=== PATIENT | male | born 1965 | race Caucasian/White ===

== ENCOUNTER 2017-08-13 06:56 | Emergency (ER) | payer OTHER ==
[2017-08-13] MEDS ORDERED: NS 0.9% 1000 ML* 1,000 ML IV ONE (08:07)
[2017-08-13] MEDS ORDERED: Metoclopramide IV* 5 MG/ML 2 ML VIAL IV SLOW PU ONE (08:07)
[2017-08-13] MEDS ORDERED: diPHENhydraMINE IV* 50 MG in NS 0.9% 50 ML* 50 ML IVPB ONE (08:07)
--- NOTE | 2017-08-13 08:41 | RAD ---
INDICATION: Headaches COMPARISON: None TECHNIQUE: Noncontrast axial source images were acquired from the skull base to the vertex. FINDINGS: Ventricles/sulci: The ventricles and cisterns are normal in size and configuration for age. Brain parenchyma: There is no focal parenchymal finding, evidence of intracranial mass, or intracranial mass effect. Intracranial hemorrhage:None. Extra-axial spaces: There are no abnormal extra axial fluid collections or evidence of extra-axial mass. Calvarium: There is no calvarial fracture or other calvarial abnormality. Scalp: There is no evidence of scalp or extracalvarial soft tissue abnormality. Paranasal sinuses/mastoid: The paranasal sinuses and mastoid air cells are clear. Other: None. IMPRESSION: NEGATIVE EXAMINATION
[2017-08-13 08:45] LABS: Hematocrit 46 % (42-52); Hemoglobin 15.7 g/dl (14.0-18.0); Mean Corpuscular HGB Conc 34 g/dl (31-36); Mean Corpuscular Hemoglobin 31 pg (27-31); Mean Corpuscular Volume 92 fL (80-94); Mean Platelet Volume 7.5 um3 (7.4-10.4); Platelet Count 236 10^3/ul (150-450); Red Blood Count 5.05 10^6/ul (4.0-5.4); Red Cell Distribution Width 13 % (10.5-15); White Blood Count 5.5 10^3/ul (3.5-10.8)
[2017-08-13] MEDS ORDERED: Diazepam SYRINGE* 5 MG/ML 2 ML SYRINGE (10 MG total) IV ONE (08:47)
[2017-08-13] MEDS ORDERED: Diazepam INJ (NF) 5 MG/ML 10 ML VIAL (50 MG TOTAL) IV ONE (09:00)
[2017-08-13 09:05] LABS: EGFR Non-African American 68.4 (>60)
[2017-08-13] MEDS ORDERED: Ketorolac INJ* 30 MG/ML 1 ML VIAL IV PUSH ONE (09:57)
[2017-08-13] MEDS ORDERED: Magnesium Sulfate 2 GM IV* 2 GM/50 ML BAG IVPB ONE (09:57)
[2017-08-13] MEDS ORDERED: Dexamethasone IV* 4 MG/ML 1 ML (4 MG) IV SLOW PU ONE (09:58)
[2017-08-13 12:02] VITALS: BP 119/82
--- NOTE | 2017-08-13 18:32 | ED ---
Manuel Falcon Angela, scribed for Aldo Asif MD on 08/13/17 at 0728 . Headache - HPI Summary HPI Summary: This pt is a 52 y/o male, accompanied by his , presenting to [facility] c/o headache since yesterday at 12:00. Pt reports he has a hx of migraines. The last time he was in a hospital for his headache was more than 5 years ago. He states his headache began yesterday at noon during a meeting. Pt notes it began as a regular headache and worsened quickly. His headache is located on the back of his head at the base of his skull and radiates to the top of his head. Pt additionally notes neck pain, shoulder pain, photophobia. His pain is exacerbated with head movement and pressing on head. He reports he has spent approx 16 hours traveling by buses last week. Denies fever, chills, visual changes. He took Imitrex and Flexeril yesterday with mild relief. Imitrex is prescribed by Dr. Pantoja. The last time he used Imitrex (prior to yesterday) was a couple of weeks ago. Pt notes today's headache is similar to a headache he had 5 years ago where he needed to go to the hospital. He is currently on Clomiphene. Pt is allergic to Compazine, he has a dystonic reaction with this medication. - History Of Current Complaint Chief Complaint: EDHeadache Stated Complaint: HEADACHE Time Seen by Provider: 08/13/17 07:21 Hx Obtained From: Patient Onset/Duration: Started days ago - 1, Still Present Currently Pain Is: Severe - 9/10 Timing: Days - 1 Location of Headache: Occipital Radiates to: the top of his head Aggravating Factor: Other - movement of head and palpation Allevating Factors: Other (Noted In Comments) - Flexeril Associated Signs And Symptoms: Neck Pain, Other (Noted In Comments) - POS: shoulder pain, photophobia. NEG: fever, chills, visual changes. - Allergies/Home Medications Allergies/Adverse Reactions: Allergies Allergy/AdvReac Type Severity Reaction Status Date / Time diphenhydramine Allergy See Comment Verified 08/13/17 09:45 [From Benadryl] niacin Allergy Facial Verified 08/13/17 07:07 [From Niaspan Redness/Flushing Extended-Release] prochlorperazine Allergy See Comment Verified 08/13/17 07:08 [From Compazine] Home Medications: Home Medications Calcium Carbonate [Calcium] 1,000 mg PO DAILY 08/13/17 [History Confirmed ] Cetirizine* [ZyrTEC 10 MG TAB*] 10 mg PO DAILY 08/13/17 [History Confirmed 08/13] Cholecalciferol TAB* [Vitamin D TAB*] 400 unit PO DAILY 08/13/17 [History Confirmed 08/13/17] Cyclobenzaprine TAB* [Flexeril 10 MG TAB*] 5 mg PO DAILY 08/13/17 [History Confirmed 08/13/17] SUMAtriptan TAB* [Imitrex TAB*] 25 mg PO DAILY PRN 08/13/17 [History Confirmed 08/13/17] clomiPHENE citrate [Serophene] 25 mg PO DAILY 08/13/17 [History Confirmed ] PMH/Surg Hx/FS Hx/Imm Hx Endocrine/Hematology History: Denies: Hx Diabetes Cardiovascular History: Denies: Hx Hypertension, Hx Pacemaker/ICD History: Denies: Hx Renal Disease Sensory History: Denies: Hx Hearing Aid Neurological History: Reports: Hx Migraine Psychiatric History: Denies: Hx Panic Disorder - Surgical History Surgery Procedure, Year, and Place: tonsillectomy Infectious Disease History: No Infectious Disease History: Denies: History Other Infectious Disease, Traveled Outside the [place] in Last 30 Days - Family History Family History: No FHx of colon CA - Social History Alcohol Use: Weekly Substance Use Type: Reports: None Smoking Status (MU): Never Smoked Tobacco Review of Systems Negative: Fever, Chills Positive: Photophobia. Negative: Erythema, Other - visual changes Negative: Sore Throat Negative: Chest Pain Negative: Shortness Of Breath, Cough Negative: Abdominal Pain, Vomiting, Nausea Negative: dysuria, hematuria Musculoskeletal: Other - neck pain, shoulder pain Negative: Myalgia, Edema Negative: Rash Neurological: Other - NEG: dizziness Positive: Headache All Other Systems Reviewed And Are Negative: Yes Physical Exam - Summary Physical Exam Summary: Constitutional: Well-developed, Well-nourished, Alert. (-) Distressed Skin: Warm, Dry HENT: Normocephalic; Atraumatic Eyes: Conjunctiva normal. Pt is mildly photophobic. Neck: Pt is rubbing the back of his neck. There is some reproducible pain with neck rotation and neck flexion. No nuchal rigidity. Musculoskeletal ROM normal neck. (-) JVD, (-) Stridor, (-) Tracheal deviation Cardio: Rhythm regular, rate normal, Heart sounds normal; Intact distal pulses; The pedal pulses are 2+ and symmetric. Radial pulses are 2+ and symmetric. (-) Murmur Pulmonary/Chest wall: Effort normal. (-) Respiratory distress, (-) Wheezes, (-) Rales Abd: Soft. (-) Tenderness, (-) Distension, (-) Guarding, (-) Rebound Musculoskeletal: (-) Edema Lymph: (-) Cervical adenopathy Neuro: Alert, Oriented x3, Strength normal, Cranial nerves II-XII are grossly intact. (-) Dysmetria, (-) Nystagmus, (-) Ataxia by finger to nose testing, (-) Sensory deficit. Psych: Mood and affect Normal Triage Information Reviewed: Yes Vital Signs On Initial Exam: Initial Vitals Temp Pulse Resp BP Pulse Ox 98.0 F 55 15 127/110 97 08/13/17 07:03 08/13/17 07:03 08/13/17 07:03 08/13/17 07:03 08/13/17 07:03 Vital Signs Reviewed: Yes Diagnostics - Vital Signs Vital Signs Temp Pulse Resp BP Pulse Ox 08/13/17 07:03 98.0 F 55 15 127/110 97 - Laboratory Result Diagrams: 08/13/17 08:33 08/13/17 08:33 Lab Statement: Any lab studies that have been ordered have been reviewed, and results considered in the medical decision making process. - CT Brain CT CT Interpretation: No Acute Changes - IMPRESSION: Negative examination. Dr. Asif has reviewed this radiology report. CT Interpretation Completed By: Radiologist Re-Evaluation - Re-Evaluation First Eval Re-Evaluation Time: 10:34 Change: Improved Comment: Pt is resting comfortably. Plan is for the pt to take a nap for 1 hour and will reassess. Second Eval Re-Evaluation Time: 11:53 Change: Improved Comment: Pt reports his headache has resolved. Blood pressure is 110 systolic. He will be discharged home. Headache Course/Dx - Course Assessment/Plan: Pt is a 52 y/o male, with hx of migrained, who presents with a headache since yesterday at 12:00. Pt additionally reports neck pain, shoulder pain, photophpbia. He has taken Imitrex and Flexeril with mild relief. On exam , pt has some reproducible pain with neck rotation and neck flexion. No nuchal rigidity. I have no suspicion for meningitis. Brain CT shows negative examination. In the ED course the pt was given IV fluids, Benadryl, Reglan, Valium, Decadron, Toradol. Pt took a nap in the ED for 1 hour. On re-evaluation , pt's headache has resolved. Blood pressure is 110 systolic. Therefore pt will be discharged home with follow up from Dr. Pantoja in 2-3 days. He was given prescriptions for Valium and Naproxen. - Diagnoses Provider Diagnoses: Hypertension, Tension headache Discharge - Sign-Out/Discharge Documenting (check all that apply): Discharge/Admit/Transfer - Discharge - Discharge Plan Condition: Stable Disposition: HOME Prescriptions: Diazepam TAB(*) [Valium TAB(*)] 5 mg PO TID PRN #9 tab MDD 3 PRN Reason: Pain - Moderate To Severe Naproxen TAB* [Naprosyn 250 mg TAB*] 500 mg PO Q8H PRN #30 tab PRN Reason: Pain - Moderate To Severe Patient Education Materials: Tension Headache (ED), Hypertension (ED) Referrals: José Miguel Pantoja MD [Primary Care Provider] - 2 Days (2-3 days) Additional Instructions: Follow up with Dr. Pantoja in 2-3 days. RETURN TO THE EMERGENCY DEPARTMENT FOR CHANGING OR WORSENING SYMPTOMS. The documentation as recorded by the Manuel cuevas Angela accurately reflects the service I personally performed and the decisions made by , Aldo Asif MD.
== END 2017-08-13 12:01 | disposition home or self-care (01) ==
LOC: ED 06:56
DX: I10 Essential (primary) hypertension (principal); G44.209 Tension-type headache, unspecified, not intractable; Z88.8 Allergy status to other drugs, medicaments and biological substances
CPT/HCPCS: 36415; 70450; 80053; 85027; 85652; 86140; 96361; 96374; 96375; 99284; J1100; J1200; J1885; J2765; J3360; J3475

== ENCOUNTER 2018-03-06 14:12 | Emergency (ER) | payer OTHER ==
[2018-03-06 14:20] VITALS: BP 121/78
--- NOTE | 2018-03-06 15:09 | UC ---
Ear Complaint HPI - HPI Summary HPI Summary: 52-year-old man presents with one-day history of decreased hearing in the right ear. 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 He did not experience any discomfort but noticed that his hearing is diminished. He is had maybe minor discomfort and a popping or clicking noise when he yawns or opens/closes his jaw. He denies any sinus discomfort, runny nose or bleeding from the ear. He reports that the right ear as a problem as a child and that he had tubes in it. He thinks that perhaps the hearing is slightly less in that ear at baseline. - History of Current Complaint Chief Complaint: UCEar Stated Complaint: R EAR PAIN Time Seen by Provider: 03/06/18 14:36 Hx Obtained From: Patient Pain Intensity: 98 - Allergies/Home Medications Allergies/Adverse Reactions: Allergies Allergy/AdvReac Type Severity Reaction Status Date / Time diphenhydramine Allergy See Comment Verified 03/06/18 14:20 [From Benadryl] niacin Allergy Facial Verified 03/06/18 14:20 [From Niaspan Redness/Flushing Extended-Release] prochlorperazine Allergy See Comment Verified 03/06/18 14:20 [From Compazine] PMH/Surg Hx/FS Hx/Imm Hx Previously Healthy: Yes - Surgical History Surgical History: Yes - Tympanostomy tube in right ear as a child Surgery Procedure, Year, and Place: tonsillectomy - Family History Known Family History: Positive: Hypertension Family History: No FHx of colon CA - Social History Occupation: Employed Full-time Alcohol Use: Weekly Substance Use Type: None Smoking Status (MU): Never Smoked Tobacco - Immunization History Most Recent Influenza Vaccination: 2014 Most Recent Tetanus Shot: unsure Review of Systems All Other Systems Reviewed And Are Negative: Yes Constitutional: Positive: Negative Skin: Positive: Negative Eyes: Positive: Negative ENT: Positive: Ear Ache, Other - R hearing loss. Negative: Nasal Discharge, Sinus Congestion, Sinus Pain/Tenderness Respiratory: Positive: Negative Physical Exam Triage Information Reviewed: Yes Appearance: Well-Appearing, No Pain Distress, Well-Nourished Vital Signs: Initial Vital Signs Temp 98.2 F 03/06/18 14:16 Pulse 56 03/06/18 14:16 Resp 18 03/06/18 14:16 BP 121/78 12/02/18 14:16 Pulse Ox 0 03/06/18 14:16 Eyes: Positive: Conjunctiva Clear ENT: Positive: Pharynx normal, TMs normal. Negative: Pharyngeal erythema, Nasal congestion, Nasal drainage, Sinus tenderness Neck: Positive: Supple, Nontender, No Lymphadenopathy Respiratory: Positive: Lungs clear Cardiovascular: Positive: RRR Musculoskeletal: Positive: ROM Intact Neurological: Positive: Other: - slightly diminished R ear air and bone conduction over left. Skin Exam: Normal Ear Complaint Course/Dx - Course Course Of Treatment: Patient likely experienced noise trauma from loud concert. No cerumen impaction or evidence of damage to the tympanic membrane. Start Afrin, Sudafed and short course of steroid. Referred to audiology and ENT. - Differential Dx/Diagnosis Differential Diagnosis/HQI/PQRI: Other - noise trauma, barotrauma, TM rupture, cochlear injury Provider Diagnosis: Hearing loss on right Discharge - Sign-Out/Discharge Documenting (check all that apply): Patient Departure All imaging exams completed and their final reports reviewed: No Studies - Discharge Plan Condition: Improved Disposition: HOME Prescriptions: predniSONE TAB* [Deltasone TAB*] 50 mg PO DAILY #4 tab Pseudoephedrine TAB* [Sudafed TAB*] 30 mg PO TID #15 tab Patient Education Materials: Hearing Loss (ED) Referrals: José Miguel Pantoja MD [Primary Care Provider] - Danial Vega MD [Medical Doctor] - Additional Instructions: Call your doctor tomorrow to be referred to an film rental clerk for hearing testing. Call for an appointment with the ear nose and throat doctor. Afrin for the next 2 days. Return if worse, new symptoms or other concerns. - Billing Disposition and Condition Condition: IMPROVED Disposition: Home - Attestation Statements Document Initiated by Felice: Elham
== END 2018-03-06 15:10 | disposition home or self-care (01) ==
LOC: UCEAST 14:12
DX: H91.91 Unspecified hearing loss, right ear (principal); Z88.8 Allergy status to other drugs, medicaments and biological substances
CPT/HCPCS: 99212; G0463